=== PATIENT | male | born 1980 | race Caucasian/White ===

== ENCOUNTER 2016-05-29 18:51 | Emergency (ER) | payer OTHER ==
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
[2016-05-29 20:00] VITALS: BP 124/90
[2016-05-29] MEDS: BENZONATATE 100 MG CAPSULE PO ONE (20:04)
[2016-05-29] MEDS: predniSONE 10 MG TABLET PO ONE (20:04)
== END 2016-05-29 20:05 | disposition home or self-care (01) ==
LOC: ED 18:51
DX: J06.9 Acute upper respiratory infection, unspecified (principal)
CPT/HCPCS: 99282; A9270-GY; J7512

== ENCOUNTER 2016-07-20 14:54 | Emergency (ER) | payer SELFPAY ==
[2016-07-20 15:04] VITALS: BP 147/81
[2016-07-20] MEDS ORDERED: KETOROLAC TROMETHAMINE 60 MG/2 ML VIAL IM ONE (15:09)
--- NOTE | 2016-07-20 15:13 | ED Physician Documentation ---
General Adult - HISTORIAN Historian: patient - HPI Stated Complaint: Back Pain Chief Complaint: General Adult Additional Information: Working on [employer] this am. Cut piece of plywood. Sat down on bed and leaned back. Immediate low back pain bilaterally, R>L. Has tried heat, ice, heat patch, w/o affect. Denies numbness, weaknee, loss bowel/bladder control. No weakness. - ROS CONST: no problems - PAST HX Past History: other (acid reflux; back pain episodes i nthe past) Allergies/Adverse Reactions: Allergies Allergy/AdvReac Type Severity Reaction Status Date / Time Penicillins Allergy Severe Anaphylaxis Verified 05/29/16 20:00 acetaminophen [From Percocet] Allergy Intermediate Hives Verified 05/29/16 20:00 oxycodone HCl [From Percocet] Allergy Intermediate Hives Verified 05/29/16 20:00 Home Medications: Ambulatory Orders Medication Instructions Recorded Cyclobenzaprine HCl [Flexeril] 10 mg PO HS #12 tablet 07/20/16 - SOCIAL HX Smoking History: cigarettes - FAMILY HX Family History: No - VITAL SIGNS Vital Signs: Vital Signs Temp Pulse Resp BP Pulse Ox 98 F 68 18 147/81 99 07/20/16 14:54 07/20/16 14:54 07/20/16 14:54 07/20/16 14:54 07/20/16 14:54 - REVIEWED ASSESSMENTS Nursing Assessment Reviewed: Yes Vitals Reviewed: Yes ED Results Lab/Radiology - Orders Orders: ED Orders Category Date Time Status Ketorolac Tromethamine [Toradol] Med 07/20/16 15:09 Once 60 mg IM NOW ONE General Adult Physical Exam - PHYSICAL EXAM GENERAL APPEARANCE: moderate distress EENT: eye inspection normal, ENT inspection normal NECK: normal inspection, supple RESPIRATORY: no resp distress, breath sounds normal CVS: reg rate & rhythm, heart sounds normal, no murmur RECTAL: deferred BACK: normal inspection, other (bilateral thoracolumbar paraspinous muscle spas , tender to palpation, R>L. No vertebral tenderness. Erect posure, ROM with local discomfort. ) SKIN: warm/dry EXTREMITIES: normal range of motion (gait), no evidence of injury NEURO: CN's nml as tested, motor nml, sensation nml, cognition normal, other ( reflexes 2+ throughout) Discharge Clincal Impression: Back pain Qualifiers: Back pain location: back pain in other location Chronicity: acute Qualified Code(s): M54.9 - Dorsalgia, unspecified Prescriptions: Cyclobenzaprine HCl [Flexeril] 10 mg PO HS #12 tablet Additional Instructions: Continue using heat and cold to the sore areas, followed by gentle motion and stretching. You can take 1000 mg tylenol up to three times a day. You can take 600 mg ibuprofen with food every 8 hours. If this upsets you stomach, stop the ibuprofen. Home Medications: Ambulatory Orders Cyclobenzaprine HCl [Flexeril] 10 mg PO HS #12 tablet 07/20/16 Condition: Fair Disposition: 01 HOME, SELF-CARE Decision to Admit: NO Decision Time: 15:18
== END 2016-07-20 15:26 | disposition home or self-care (01) ==
LOC: ED 14:54
DX: M54.9 Dorsalgia, unspecified (principal)
CPT/HCPCS: 96372; 99283; J1885

== ENCOUNTER 2017-03-22 04:30 | Emergency (ER) | payer SELFPAY ==
[2017-03-22] MEDS ORDERED: KETOROLAC TROMETHAMINE 60 MG/2 ML VIAL ONE (04:44)
--- NOTE | 2017-03-22 05:04 | ED Physician Documentation ---
Upper Extremity Injury - HISTORIAN Historian: patient - HPI Stated Complaint: rt shoulder injury Chief Complaint: Upper Extremity Injury Onset: yesterday (5AM) Where: other Severity: moderate Duration: worse Context: fall, blow Modifying Factors: pain on movement - ROS CONST: no problems. denies: fever, chills - PAST HX Past History: Rt handed Allergies/Adverse Reactions: Allergies Allergy/AdvReac Type Severity Reaction Status Date / Time Penicillins Allergy Severe Anaphylaxis Verified 03/22/17 04:51 oxycodone HCl [From Percocet] Allergy Intermediate Hives Verified 03/22/17 04:51 Home Medications: Ambulatory Orders Medication Instructions Recorded Ranitidine HCl [Ranitidine HCl] 150 mg PO D 03/22/17 - SOCIAL HX Smoking History: less than 1 pack/day Alcohol Use: none Drug Use: none - FAMILY HX Family History: no significant history (1/2 ppd) - VITAL SIGNS Vital Signs: Vital Signs Temp Pulse Resp BP Pulse Ox 97.8 F 63 16 127/74 98 03/22/17 04:33 03/22/17 05:43 03/22/17 05:43 03/22/17 05:43 03/22/17 05:43 - REVIEWED ASSESSMENTS Nursing Assessment Reviewed: Yes Vitals Reviewed: Yes ED Results Lab/Radiology - Orders Orders: ED Orders Category Date Time Status Sling to Affected Extremity 1T Care 03/22/17 05:32 Active SHOULDER 2 VIEWS OR MORE [RAD] Stat Exams 03/22/17 Taken Ketorolac Tromethamine [Toradol] Med 03/22/17 04:44 Discontinued 60 mg .ROUTE .STK-MED ONE Ketorolac Tromethamine [Toradol] Med 03/22/17 05:13 Discontinued 60 mg IM NOW ONE Upper Extremity Injury Physic - Physical Exam General Appearance: alert, moderate distress Hand: normal inspection, non-tender, no evidence of injury, normal ROM Wrist: normal inspection, non-tender, no evidence of injury, normal ROM Elbow/Forearm: normal inspection, non-tender, no evidence of injury, normal ROM Shoulder: limited ROM (due to pain), pain (tenderness to palpation over the anterior shoulder area), soft tissue tenderness. No: ecchymosis, swelling Neuro/Vascular/Tendon: no vascular compromise, motor nml Skin: warm,dry Resp/CVS: chest non-tender, breath sounds nml, heart sounds nml, no resp. distress, lungs clear, reg. rate & rhythm Discharge Clincal Impression: Contusion of shoulder Referrals: Andrea Carl MD [Primary Care Provider] - 2 Days Additional Instructions: Try applying a cool/warm compress to the shoulder area. Wear arm sling for comfort measures. Do shoulder exercises as shown. Take some Aleve 220mg with food twice a day for pain. If you continue to have problems to be evaluated by primary care provider or return to the ED. Condition: Stable Disposition: 01 HOME, SELF-CARE Decision to Admit: NO Date of Decison to Admit: 03/22/17 Decision Time: 05:19
[2017-03-22] MEDS ORDERED: KETOROLAC TROMETHAMINE 60 MG/2 ML VIAL IM ONE (05:13)
[2017-03-22 05:46] VITALS: BP 127/74
--- NOTE | 2017-03-22 06:42 | Diagnostic Imaging Report ---
MARTIN EVERETT [facility] [address] [facility].[address] [address] Report Submission Date: Mar 22, 2017 5:11:41 AM CDT Patient Study Name: ANDREZ ALVARADO Date: Mar 22, 2017 4:56:16 AM CDT Modality Type: CR Gender: M Description: SHOULDER : 82 Institution: [facility] Physician: MARTIN EVERETT 3 views of the right shoulder History: RT SHOULDER PAIN, PT FELL AND LANDED ON RIGHT SHOULDER No comparison studies No evidence of acute fracture or dislocation of the right shoulder. Glenohumeral and acromioclavicular joint spaces are preserved Impression: No evidence of acute fracture or dislocation of the right shoulder Electronically signed on Mar 22, 2017 5:11:41 AM CDT by: Megha STARKS
== END 2017-03-22 05:35 | disposition home or self-care (01) ==
LOC: ED 04:30
DX: S40.011A Contusion of right shoulder, initial encounter (principal); X58.XXXA Exposure to other specified factors, initial encounter; Y93.9 Activity, unspecified; Y99.9 Unspecified external cause status
CPT/HCPCS: 73030; J1885; 96372; 99283

== ENCOUNTER 2017-10-01 17:10 | Emergency (ER) | payer OTHER ==
[2017-10-01] MEDS: ASPIRIN 81 MG CHEW TAB PO ONE (17:40)
[2017-10-01 18:03] LABS: eGFR (African) > 60; eGFR (Non-African) > 60
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
[2017-10-01] MEDS: 0.9 % SODIUM CHLORIDE 1,000 ML IV ONE (18:10)
[2017-10-01 18:16] LABS: MEAN CORPUSCULAR HEMOGLOBIN 31.1 pg (28.0-34.0); MEAN CORPUSCULAR VOLUME 92.2 fl (80.0-100.0)
[2017-10-01 18:17] LABS: BASOPHILS % 0.7 (0.0-1.5); EOSINOPHILS % 2.1 % (0.0-6.8); MONOCYTES % 4.4 % (0.0-11.0); NEUTROPHILS # 7.9 # k/uL (1.4-7.7)
--- NOTE | 2017-10-01 18:52 | Diagnostic Imaging Report ---
DINO BETTENCOURT [facility] [address] [facility] [address] [place], [place]. [address] Report Submission Date: October 01, 2017 6:39:31 PM CDT Patient Study Name: ANDREZ ALVARADO Date: October 01, 2017 6:20:30 PM CDT Modality Type: CT\SR Gender: M Description: CT BRAIN W/O CONTRAST : 82 Institution: [facility] Physician: DINO BETTENCOURT CT brain History: CT HEAD W/O, LOC, PT STATES HE HAD CHEST DISCOMFORT AND THEN PASSED OUT multiple axial images of the brain are submitted with reconstructions No comparison studies No evidence of acute intracranial hemorrhage. No midline shift. No hydrocephalus Paranasal air sinuses and mastoid air cells are well aerated. No skull fracture. Impression: No evidence of acute intracranial hemorrhage. No midline shift. No hydrocephalus. Electronically signed on October 01, 2017 6:39:31 PM CDT by: Megha STARKS
--- NOTE | 2017-10-01 18:52 | Diagnostic Imaging Report ---
DINO BETTENCOURT [facility] [address] [facility] [address] [place], [place]. [address] Report Submission Date: October 01, 2017 6:36:17 PM CDT Patient Study Name: ANDREZ ALVARADO Date: October 01, 2017 6:12:42 PM CDT Modality Type: DX Gender: M Description: CHEST : 82 Institution: [facility] Physician: DINO BETTENCOURT 2 views of the chest History: CXR, CHEST PAIN AND TIGHTNESS TODAY No comparison studies Heart is normal in size. No focal consolidation, pleural effusion or pneumothorax. No acute osseous pathology Minimal hilar prominence. Impression: 1. No focal consolidation or pleural effusion. Minimal hilar prominence. Electronically signed on October 01, 2017 6:36:17 PM CDT by: Megha STARKS
[2017-10-01 18:53] VITALS: BP 111/77
== END 2017-10-01 18:45 | disposition home or self-care (01) ==
LOC: ED 17:10
DX: R07.9 Chest pain, unspecified (principal)
CPT/HCPCS: 70450; 71046; 80053; 82550; 84484; 85025; 85379; 93005; J7030; S1016

== ENCOUNTER 2017-12-01 17:20 | Emergency (ER) | payer OTHER ==
[2017-12-01] MEDS ORDERED: KETOROLAC TROMETHAMINE 30 MG/1ML VIAL IVP ONE (17:38)
[2017-12-01] MEDS: KETOROLAC TROMETHAMINE 30 MG/1ML VIAL ONE (17:54)
[2017-12-01] MEDS ORDERED: 0.9 % SODIUM CHLORIDE 1,000 ML IV SCH (18:00)
[2017-12-01 18:03] LABS: BASOPHILS % 1.3 (0.0-1.5); EOSINOPHILS % 2.8 % (0.0-6.8); MEAN CORPUSCULAR HEMOGLOBIN 31.8 pg (28.0-34.0); MEAN CORPUSCULAR VOLUME 92.1 fl (80.0-100.0); MONOCYTES % 5.7 % (0.0-11.0); NEUTROPHILS # 6.4 # k/uL (1.4-7.7)
[2017-12-01 18:19] LABS: eGFR (African) > 60; eGFR (Non-African) > 60
[2017-12-01] MEDS: 0.9 % SODIUM CHLORIDE 1,000 ML IV ONE (18:47)
--- NOTE | 2017-12-01 18:47 | Diagnostic Imaging Report ---
MARTIN EVERETT [facility] [address] [facility] [address] [place], [place]. [address] Report Submission Date: Dec 01, 2017 6:30:06 PM CDT Patient Study Name: ANDREZ ALVARADO Date: Dec 01, 2017 6:04:45 PM CDT Modality Type: CT\SR Gender: M Description: CT ABD PELVIS W/O CO : 82 Institution: [facility] Physician: MARTIN EVERETT CT Abdomen/pelvis without contrast History: BILAT FLANK PAIN X 1 WEEK. LEFT WORSE THAN RIGHT. DENIES KIDNEY HISTORY (Hx) / ITS.REASON FLANK PAIN no comparison studies are available Emphysema. No free intraperitoneal air. No acute osseous pathology Hepatic steatosis. Gallbladder is contracted. Splenic calcified granulomas are present. Both adrenal glands are within normal limits. The pancreas within normal limits. Cortical calcification noted in the left kidney. Limited evaluation of renal parenchyma on this noncontrast study. Renal cysts are questioned on the right. A small nonobstructing right renal calculus. No right hydronephrosis. There is mild to moderate left hydronephrosis with adjacent fat stranding. There is an obstructing 6 mm calculus at the left ureterovesicular junction. Mild fat stranding around the urinary bladder may be due to UTIi. Prostatic calcification is present The colon is collapsed. Normal appendix. No obvious bowel obstruction. Subcentimeter abdominal and pelvic lymph nodes are noted. Impression: 1. Left obstructive uropathy. Mild to moderate left hydronephrourterosis with adjacent fat stranding. There is an obstructing 6 mm calculus in the left ureterovesicular junction . Fat stranding around the urinary bladder may be due to uti. Prostatic calcification is present. Nonobstructing right renal calculus measures 3 mm 2. Left renal cortical calcification is noted. Limited evaluation of the renal parenchyma for lesions, questionable right renal cysts. 3. Hepatic steatosis.. Normal appendix. Electronically signed on Dec 01, 2017 6:30:06 PM CDT by: Megha STARKS
[2017-12-01] MEDS: TAMSULOSIN HCL 0.4 MG CAP.ER.24H PO ONE (19:21)
--- NOTE | 2017-12-02 00:40 | ED Physician Documentation ---
Flank Pain - HISTORIAN Historian: patient - HPI Chief Complaint: Flank Pain Additional Information: Intermittent pain in the flank pain. First episode occurred about one week ago on the right side lasted for about 10 minutes. Yesterday occurred twice in the left flank area. Pain started again tonight in the left flank area with radiation into the left testicle. No nausea noted. No previous history of kidney stones. Sister with history of kidney stones. No fever or chills noted. Patient states that last week after he had the right sided pain he passed in his urine something that looked like a small stone that had "quills on it" . Patient denies any hematuria. Onset: minutes (45) Duration: constant Timing: still present Context: denies: out of country travel Severity: severe Quality: pain, cramping, sharp Associated Symptoms: none. denies: fever, chills, nausea, vomiting, coffee ground emesis Exacerbated by: denies: nothing Relieved by: denies: nothing - ROS CONST: no problems GI/: none. denies: dark urine, problems urinating - SOCIAL HX Smoking History: less than 1 pack/day Alcohol Use: none Drug Use: none - FAMILY HX Family History: no significant history. denies: kidney stones - PAST HX Past History: none Ischemic Bowel Risk Factors: none Other History: none Surgeries/Procedures: none Immunizations: referred to PCP - VITAL SIGNS Vital Signs: Vital Signs Temp Pulse Resp BP Pulse Ox 111/77 10/01/17 18:45 - REVIEWED ASSESSMENTS Nursing Assessment Reviewed: Yes ED Results Lab/Radiology - Radiology Radiology Impressions: CT Abdomen/pelvis without contrast History: BILAT FLANK PAIN X 1 WEEK. LEFT WORSE THAN RIGHT. DENIES KIDNEY HISTORY (Hx) / ITS.REASON FLANK PAIN no comparison studies are available Emphysema. No free intraperitoneal air. No acute osseous pathology Hepatic steatosis. Gallbladder is contracted. Splenic calcified granulomas are present. Both adrenal glands are within normal limits. The pancreas within normal limits. Cortical calcification noted in the left kidney. Limited evaluation of renal parenchyma on this noncontrast study. Renal cysts are questioned on the right. A small nonobstructing right renal calculus. No right hydronephrosis. There is mild to moderate left hydronephrosis with adjacent fat stranding. There is an obstructing 6 mm calculus at the left ureterovesicular junction. Mild fat stranding around the urinary bladder may be due to UTIi. Prostatic calcification is present The colon is collapsed. Normal appendix. No obvious bowel obstruction. Subcentimeter abdominal and pelvic lymph nodes are noted. Impression: 1. Left obstructive uropathy. Mild to moderate left hydronephrourterosis with adjacent fat stranding. There is an obstructing 6 mm calculus in the left ureterovesicular junction . Fat stranding around the urinary bladder may be due to uti. Prostatic calcification is present. Nonobstructing right renal calculus measures 3 mm 2. Left renal cortical calcification is noted. Limited evaluation of the renal parenchyma for lesions, questionable right renal cysts. 3. Hepatic steatosis.. Normal appendix. Abdominal Pain Physical Exam - Physical Exam General Appearance: severe distress EENT: ENT inspection normal NECK: normal inspection, thyroid normal, supple RESPIRATORY: no resp distress, chest non-tender, breath sounds normal. No: wheezes, rales, rhonchi CVS: reg rate & rhythm, heart sounds normal, equal pulses, no murmur, no gallop ABDOMEN: soft, no organomegaly, no abdominal bruit, no distension, tenderness ( mild LLQ tenderness), decreased BS MALE GENITAL: normal genitalia, no hernia. No: epididymal tenderness, scrotum tenderness (L), testicular tenderness (R), testicular tenderness (L), urethral discharge BACK: normal inspection, no CVA tenderness, CVA tenderness (L) SKIN: warm/dry, normal color EXTREMITIES: no edema NEURO: oriented X3, mood/affect nml, cognition normal Vital Signs: Vital Signs Temp Pulse Resp BP Pulse Ox 111/77 10/01/17 18:45 Discharge Clincal Impression: Kidney stone on left side Prescriptions: Hydrocodone/Acetaminophen [Hydrocodon-Acetaminophen 5-325] 1 - 2 each PO Q4 PRN #20 tablet PRN Reason: Pain Tamsulosin HCl [Flomax] 0.4 mg PO [id number] #7 cap.er.24h Referrals: Andrea Carl MD [Primary Care Provider] - 2 Days Condition: Good Disposition: 01 HOME, SELF-CARE Decision to Admit: NO Date of Decison to Admit: 12/01/17 Decision Time: 18:56
[2017-12-02 00:41] VITALS: BP 129/89
[2017-12-02] MEDS ORDERED: TAMSULOSIN HCL 0.4 MG CAP.ER.24H PO ONE (19:06)
--- NOTE | 2017-12-02 19:48 | Diagnostic Imaging Report ---
[facility] [address] [facility] [address] [place], [place]. [address] Report Submission Date: Dec 01, 2017 6:30:06 PM CDT Patient Study Name: ANDREZ ALVARADO Date: Dec 01, 2017 6:04:45 PM CDT Modality Type: CT\SR Gender: M Description: CT ABD PELVIS W/O CO : 82 Institution: [facility] Physician: MARTIN EVERETT CT Abdomen/pelvis without contrast History: BILAT FLANK PAIN X 1 WEEK. LEFT WORSE THAN RIGHT. DENIES KIDNEY HISTORY (Hx) / ITS.REASON FLANK PAIN no comparison studies are available Emphysema. No free intraperitoneal air. No acute osseous pathology Hepatic steatosis. Gallbladder is contracted. Splenic calcified granulomas are present. Both adrenal glands are within normal limits. The pancreas within normal limits. Cortical calcification noted in the left kidney. Limited evaluation of renal parenchyma on this noncontrast study. Renal cysts are questioned on the right. A small nonobstructing right renal calculus. No right hydronephrosis. There is mild to moderate left hydronephrosis with adjacent fat stranding. There is an obstructing 6 mm calculus at the left ureterovesicular junction. Mild fat stranding around the urinary bladder may be due to UTIi. Prostatic calcification is present The colon is collapsed. Normal appendix. No obvious bowel obstruction. Subcentimeter abdominal and pelvic lymph nodes are noted. Impression: 1. Left obstructive uropathy. Mild to moderate left hydronephrourterosis with adjacent fat stranding. There is an obstructing 6 mm calculus in the left ureterovesicular junction . Fat stranding around the urinary bladder may be due to uti. Prostatic calcification is present. Nonobstructing right renal calculus measures 3 mm 2. Left renal cortical calcification is noted. Limited evaluation of the renal parenchyma for lesions, questionable right renal cysts. 3. Hepatic steatosis.. Normal appendix. Electronically signed on Dec 01, 2017 6:30:06 PM CDT by: Megha STARKS
== END 2017-12-01 19:40 | disposition home or self-care (01) ==
LOC: ED 17:20
DX: N20.0 Calculus of kidney (principal)
CPT/HCPCS: 74176; 80053; 85025; J1885; J7030; 96365; 96375; 99284; S1016

== ENCOUNTER 2017-12-01 21:43 | Emergency (ER) | payer OTHER ==
[2017-12-01] MEDS ORDERED: 0.9 % SODIUM CHLORIDE 1,000 ML IV ONE (21:50)
[2017-12-01] MEDS ORDERED: HYDROmorphone HCL/PF 1 MG/ML DISP.SYRIN IVP ONE ×3 (21:50→23:40)
[2017-12-01] MEDS ORDERED: ONDANSETRON HCL/PF 4 MG/ 2ML VIAL IVP ONE (21:51)
[2017-12-01] MEDS: 0.9 % SODIUM CHLORIDE 1,000 ML IV ONE (22:05)
[2017-12-01] MEDS: HYDROmorphone HCL/PF 2 MG/ML DISP.SYRIN ONE (22:07)
[2017-12-01] MEDS: ONDANSETRON HCL/PF 4 MG/ 2ML VIAL ONE (22:07)
[2017-12-01] MEDS ORDERED: HYDROcodone /APAP 5/325 1 EACH TABLET PO PRN (23:41)
[2017-12-01] MEDS ORDERED: HYDROcodone /APAP 5/325 1 EACH TABLET ONE (23:47)
[2017-12-02 00:45] VITALS: BP 137/89
--- NOTE | 2017-12-02 00:46 | ED Physician Documentation ---
General Adult - HISTORIAN Historian: patient - HPI Stated Complaint: Left flank pain Chief Complaint: General Adult Onset: days ago Timing: still present Severity: moderate Further Comments: yes (Pt is a 37 yo male seen here earlier today and dx'd with a L-sided kidney stone. Pt was given a prescription for [place], but did not get to the pharmacy in time to fill it. Pt has had L sided pain with radiation to groin. No previous hx kidney stone.) - ROS CONST: no problems EYES/ENT: none CVS/RESP: none GI/: abdominal pain (L-sided flank pain) MS/SKIN/LYMPH: none - PAST HX Past History: other (GERD) Allergies/Adverse Reactions: Allergies Allergy/AdvReac Type Severity Reaction Status Date / Time Penicillins Allergy Severe Anaphylaxis Verified 10/01/17 17:35 oxycodone HCl [From Percocet] Allergy Intermediate Hives Verified 10/01/17 17:35 Home Medications: Ambulatory Orders Medication Instructions Recorded Ranitidine HCl [Ranitidine HCl] 150 mg PO D 03/22/17 Hydrocodone/Acetaminophen 1 - 2 each PO Q4 PRN #20 tablet 12/01/17 [Hydrocodon-Acetaminophen 5-325] Tamsulosin HCl [Flomax] 0.4 mg PO [id number] #7 cap.er.24h 12/01/17 - SOCIAL HX Smoking History: cigarettes - FAMILY HX Family History: No - VITAL SIGNS Vital Signs: Vital Signs Temp Pulse Resp BP Pulse Ox 98.8 F 74 18 159/68 98 12/01/17 21:45 12/01/17 21:45 12/01/17 21:45 12/01/17 21:45 12/01/17 21:45 - REVIEWED ASSESSMENTS Nursing Assessment Reviewed: Yes Vitals Reviewed: Yes Progress - Progress Progress: NS 1 L IVF Dilaudid 1 mg IV Zofran 4 mg IV Dilaudid 0.5 mg IV x 2 D/c home [place] (5/325) 1-2 po q 6 hr prn # 4 --> home (Pt has rx from earlier visit). ED Results Lab/Radiology - Orders Orders: ED Orders Category Date Time Status 0.9 % Sodium Chloride [Normal Saline] 1,000 ml Med 12/01/17 21:58 Discontinued IV .STK-MED HYDROmorphone HCL/PF [Dilaudid] Med 12/01/17 21:50 Once 1 mg IVP NOW ONE HYDROmorphone HCL/PF [Dilaudid] Med 12/01/17 21:58 Discontinued 2 mg .ROUTE .STK-MED ONE NORMAL SALINE @ 1000 MLS/HR ( 1000ml BOLUS) Med 12/01/17 21:50 Ordered 0.9 % Sodium Chloride [Normal Saline] 1,000 ml IV Q1H Ondansetron HCl/Pf [Zofran 4 mg/2 ml] Med 12/01/17 21:58 Discontinued 4 mg .ROUTE .STK-MED ONE Ondansetron HCl/Pf [Zofran 4 mg/2 ml] Med 12/01/17 21:51 Once 4 mg IVP NOW ONE General Adult Physical Exam - PHYSICAL EXAM GENERAL APPEARANCE: moderate distress EENT: pharynx normal NECK: normal inspection, supple RESPIRATORY: no resp distress, chest non-tender, breath sounds normal CVS: reg rate & rhythm, heart sounds normal ABDOMEN: soft, no organomegaly, normal bowel sounds, tenderness (L abd) BACK: normal inspection, CVA tenderness (L) SKIN: warm/dry, normal color EXTREMITIES: non-tender, normal range of motion, no evidence of injury NEURO: oriented X3, motor nml, sensation nml Discharge Clincal Impression: Kidney stone Referrals: Andrea Carl MD [Primary Care Provider] - Condition: Stable Disposition: 01 HOME, SELF-CARE Decision to Admit: NO Decision Time: 00:01
== END 2017-12-02 00:07 | disposition home or self-care (01) ==
LOC: ED 21:43
DX: N20.0 Calculus of kidney (principal)
CPT/HCPCS: A9270; J1170; J2405; J7030; 96365; 96375; 99284; S1016

== ENCOUNTER 2017-12-18 20:44 | Emergency (ER) | payer OTHER ==
[2017-12-18] MEDS ORDERED: fentaNYL CITRATE/PF 100 MCG/ 2ML AMP IVP ONE ×2 (21:32→22:50)
[2017-12-18] MEDS ORDERED: 0.9 % SODIUM CHLORIDE 1,000 ML IV ONE (21:32)
[2017-12-18 22:02] LABS: BASOPHILS % 0.4 (0.0-1.5); EOSINOPHILS % 1.4 % (0.0-6.8); MEAN CORPUSCULAR HEMOGLOBIN 32.1 pg (28.0-34.0); MEAN CORPUSCULAR VOLUME 92.3 fl (80.0-100.0); NEUTROPHILS # 11.8 # k/uL (1.4-7.7)
--- NOTE | 2017-12-18 22:07 | ED Physician Documentation ---
Male Genitourinary Problems - HISTORIAN Historian: patient, spouse - HPI Stated Complaint: Rt flank/side pain since yesterday Chief Complaint: Abdominal Pain Additional Information: pt dx 12-01-17 w/lt renal lithiasis apparently passed now pain rt flank rad to rt testicle onset yest. pt also c/o constipation. takes two 7.5/325 norco w/ no laxative. the prev ct rev non obst 3mm rt urinary calculus plus occ blood in urine tonite. will tx. Onset: days ago (yest) Duration: continues in ED, worse Severity: moderate, severe - Associated Symptoms Problems Urinating: blood in urine, discomfort w/ urination (is on cipro and tamsulosin) Testicular Pain: R testicle Testicular Swelling: none Penile Pain: No Flank Pain: right sided Abdominal Pain: cramping, severe - ROS CONST: no problems GI/: nausea, abdominal pain. denies: vomiting CVS/RESP: none EYES/ENT: denies: problems with vision NEURO/PSYCH: denies: fainting, dizziness - PAST HX Past History: kidney stones (lactose intolerant) Cardiac Disease: none Allergies/Adverse Reactions: Allergies Allergy/AdvReac Type Severity Reaction Status Date / Time Penicillins Allergy Severe Anaphylaxis Verified 12/18/17 21:12 oxycodone HCl [From Percocet] Allergy Intermediate Hives Verified 12/18/17 21:12 Home Medications: Ambulatory Orders Medication Instructions Recorded Hydrocodone/Acetaminophen 1 - 2 each PO Q4 PRN #20 tablet 12/01/17 [Hydrocodon-Acetaminophen 5-325] Tamsulosin HCl [Flomax] 0.4 mg PO [id number] #7 cap.er.24h 12/01/17 Albuterol Sulfate [Proventil Hfa] 1 puff IH PRN PRN 12/18/17 Ciprofloxacin HCl [Cipro] 500 mg PO BID 12/18/17 Omeprazole 20 mg PO D 12/18/17 - SOCIAL HX Smoking History: less than 1 pack/day (trying to quit) Alcohol Use: none Drug Use: none - FAMILY HX Family History: none - VITAL SIGNS Vital Signs: Vital Signs Temp Pulse Resp BP Pulse Ox 97.9 F 84 20 113/85 95 12/19/17 00:00 12/18/17 20:45 12/18/17 20:45 12/18/17 20:45 12/18/17 20:45 - REVIEWED ASSESSMENTS Nursing Assessment Reviewed: Yes Vitals Reviewed: Yes ED Results Lab/Radiology - Lab Results Lab Results: Lab Results 12/18/17 12/18/17 21:40 21:40 WBC 15.30 K/ul H K/ul (4.00-12.00) RBC 5.23 M/ul H M/ul (3.90-5.20) Hgb 16.8 g/dL g/dL (12.0-18.0) Hct 48.3 % % (37.0-53.0) MCV 92.3 fl fl (80.0-100.0) MCH 32.1 pg pg (28.0-34.0) MCHC 34.8 g/dL g/dL (30.0-36.0) RDW 12.9 % % (11.3-14.3) Plt Count 367 K/mm3 K/mm3 (130-400) Neut % (Auto) 76.7 % % (39.0-79.0) Lymph % (Auto) 15.3 % L % (16.0-50.0) [place] % (Auto) 5.0 % % (0.0-11.0) Eos % (Auto) 1.4 % % (0.0-6.8) Baso % (Auto) 0.4 (0.0-1.5) Neut # (Auto) 11.8 # k/uL H # k/uL (1.4-7.7) Lymph # (Auto) 2.3 # k/uL # k/uL (0.6-4.0) [place] # (Auto) 0.8 # k/uL # k/uL (0.0-0.9) Eos # (Auto) 0.2 # k/uL # k/uL (0.0-0.6) Baso # (Auto) 0.1 # k/uL # k/uL (0.0-0.5) Reactive Lymphs % 1.2 % % (0.0-5.0) Reactive Lymphs # 0.2 # k/uL # k/uL (0.0-0.8) Sodium 137 mmol/L mmol/L (136-145) Potassium 4.1 mmol/L mmol/L (3.5-5.1) Chloride 100 mmol/L mmol/L (98-107) Carbon Dioxide 29 mmol/L mmol/L (22-30) BUN 17 mg/dL mg/dL (9-20) Creatinine 1.70 mg/dL H mg/dL (0.66-1.25) Estimated Creat Clear 80 Est GFR ( Amer) 59 L (60 - ) Est GFR (Non-Af Amer) 49 L (60 - ) Glucose 127 mg/dL H mg/dL (74-106) Calcium 9.7 mg/dL mg/dL (8.4-10.2) Total Bilirubin 0.4 mg/dL mg/dL (0.2-1.3) AST 45 U/L U/L (15-46) ALT 79 U/L H U/L (13-69) Alkaline Phosphatase 79 U/L U/L (38-126) Total Protein 7.3 g/dL g/dL (6.3-8.2) Albumin 4.1 g/dL g/dL (3.5-5.0) - Orders Orders: ED Orders Category Date Time Status ABD SERIES PA CHEST [RAD] Stat Exams 12/18/17 Completed CBC/PLATELET/DIFF Routine Lab 12/18/17 21:40 Completed CMP Routine Lab 12/18/17 21:40 Completed URINALYSIS Routine Lab 12/18/17 Ordered 0.9 % Sodium Chloride [Normal Saline] 1,000 ml Med 12/18/17 21:32 Discontinued IV Q1H fentaNYL CITRATE/PF [Duragesic] Med 12/18/17 21:32 Discontinued 100 mcg IVP NOW ONE fentaNYL CITRATE/PF [Duragesic] Med 12/18/17 22:50 Discontinued 50 mcg IVP NOW ONE Male Genitourinary Problems - EXAM General Appearance: moderate distress Abdomen: tenderness, rebound. No: guarding, abnml bowel sounds (decreased) Neck: nml inspection. No: lymphadenopathy Respiratory: no resp distress, chest non-tender, breath sounds normal CVS: reg rate & rhythm, heart sounds normal Back: non-tender, painless ROM Extremities: normal range of motion, non-tender Neuro/Psych: oriented X3, motor nml, sensation nml, mood/affect nml Skin: warm/dry, normal color. No: cyanosis, diaphoresis, jaundice, mottled Discharge Clincal Impression: Right ureteral calculus, CONSTIPATION DT OPIATES Referrals: Andrea Carl MD [Primary Care Provider] - 2 Days Comments: HOME MG CITRATE USE GATORAID WATER MIXTURE. SEE UROLOGISTS IF NOT BETTER W/ CONSERVATIVE TX Condition: Good Disposition: 01 HOME, SELF-CARE Decision to Admit: NO Decision Time: 00:42
--- NOTE | 2017-12-18 22:16 | Diagnostic Imaging Report ---
ROGER DONOHUE [facility] [address] [facility], [facility] [address] [place], [place]. [address] Report Submission Date: Dec 18, 2017 10:14:34 PM CDT Patient Study Name: ANDREZ ALVARADO Date: Dec 18, 2017 9:42:23 PM CDT Modality Type: DX Gender: M Description: CHEST,ABDOMEN : 82 Institution: [facility] Physician: ROGER DONOHUE Abdomen series with single view chest History: Right flank pain and constipation for 3 days Findings: Right perihilar infiltrate or bronchitis has decreased since 2017. The lungs are well expanded. Heart size is normal. The left lung is clear. There is no pleural effusion. Upright and supine abdominal radiographs reveal prostate calcifications and gas within normal caliber loops of colon and small bowel. There is no bowel obstruction, constipation, free air, or radiopaque renal/ureteral stone. A left pelvic calcification is consistent with a phlebolith observed on the 2017 CT. The previously identified left ureteral stone is no longer observed. Impression: 1. Nonobstructive bowel gas pattern. 2. Decreased right perihilar infiltrate or bronchitis. Electronically signed on Dec 18, 2017 10:14:34 PM CDT by: Mick STARKS
[2017-12-19 01:01] VITALS: BP 124/96
[2017-12-19 07:31] LABS: APPEARANCE,URINE CLEAR (CLEAR); COLOR,URINE YELLOW (YELLOW)
[2017-12-19 07:32] LABS: OCCULT BLOOD,URINE TRACE-LYSED (NEGATIVE); UROBILINOGEN URINE 0.2 Eu (0.2-1.0)
== END 2017-12-19 00:50 | disposition home or self-care (01) ==
LOC: ED 20:44
DX: N20.9 Urinary calculus, unspecified (principal); K59.00 Constipation, unspecified
CPT/HCPCS: 74022; 80053; 81002; 85025; J3010; J7030; 96365; 96375; 99284; S1016

== ENCOUNTER 2017-12-19 18:36 | Emergency (ER) | payer OTHER ==
--- NOTE | 2017-12-19 20:08 | ED Physician Documentation ---
Male Genitourinary Problems - HISTORIAN Historian: patient, child - HPI Stated Complaint: rt flank abd pain Chief Complaint: Male Genitourinary Problems Additional Information: proven 3mm k-stone rt kidney 12-01-17. here last noct w\sy of ureteral stone w/ pain rt flank rad rt testicle. con\cern tonite of UTI Severity: mild, moderate - Associated Symptoms Problems Urinating: none, frequent urination, discomfort w/ urination. denies: blood in urine Testicular Pain: R testicle Penile Pain: No Penile Swelling: No Inguinal Mass: No Flank Pain: right sided Abdominal Pain: cramping, moderate - ROS CONST: no problems GI/: denies: nausea, vomiting MS/SKIN/LYMPH: none CVS/RESP: none. denies: shortness of breath, cough EYES/ENT: denies: problems with vision NEURO/PSYCH: denies: fainting, dizziness - PAST HX Past History: kidney stones Cardiac Disease: none Surgeries/Procedures: none Allergies/Adverse Reactions: Allergies Allergy/AdvReac Type Severity Reaction Status Date / Time Penicillins Allergy Severe Anaphylaxis Verified 12/19/17 18:53 oxycodone HCl [From Percocet] Allergy Intermediate Hives Verified 12/19/17 18:53 Home Medications: Ambulatory Orders Medication Instructions Recorded Hydrocodone/Acetaminophen 1 - 2 each PO Q4 PRN #20 tablet 12/01/17 [Hydrocodon-Acetaminophen 5-325] Tamsulosin HCl [Flomax] 0.4 mg PO [id number] #7 cap.er.24h 12/01/17 Albuterol Sulfate [Proventil Hfa] 1 puff IH PRN PRN 12/18/17 Ciprofloxacin HCl [Cipro] 500 mg PO BID 12/18/17 Omeprazole 20 mg PO D 12/18/17 - SOCIAL HX Smoking History: cigarettes Alcohol Use: none Drug Use: none - FAMILY HX Family History: none - VITAL SIGNS Vital Signs: Vital Signs Temp Pulse Resp BP Pulse Ox 98.6 F 81 18 121/61 96 12/19/17 18:36 12/19/17 18:36 12/19/17 18:36 12/19/17 18:36 12/19/17 18:36 - REVIEWED ASSESSMENTS Nursing Assessment Reviewed: Yes Vitals Reviewed: Yes ED Results Lab/Radiology - Orders Orders: ED Orders Category Date Time Status CT ABDOMEN PELVIS S [CT ABD & PELVIS W/O CON] Stat Exams 12/19/17 Ordered URINALYSIS Routine Lab 12/19/17 Ordered Male Genitourinary Problems - EXAM General Appearance: mild distress Abdomen: non-tender EENT: no signs of dehydration Neck: nml inspection Respiratory: no resp distress, breath sounds normal CVS: reg rate & rhythm Back: non-tender Neuro/Psych: oriented X3, motor nml, sensation nml, mood/affect nml Skin: warm/dry, normal color. No: cyanosis, diaphoresis Discharge Clincal Impression: constipationrt kidney-ureteral stone Referrals: Andrea Carl MD [Primary Care Provider] - 2 Days Comments: has appt w/urologists 8-5-18. disc CT pt prefers no. has only had 1 norco today is dehydrated but no uti still on cipro. had 1 bm today Condition: Good Disposition: 01 HOME, SELF-CARE Decision to Admit: NO Decision Time: 21:13
[2017-12-19 23:02] LABS: APPEARANCE,URINE CLEAR (CLEAR); COLOR,URINE YELLOW (YELLOW); OCCULT BLOOD,URINE TRACE-INTACT (NEGATIVE); UROBILINOGEN URINE 0.2 Eu (0.2-1.0)
[2017-12-19 23:07] VITALS: BP 147/91
== END 2017-12-19 21:20 | disposition home or self-care (01) ==
LOC: ED 18:36
DX: K59.00 Constipation, unspecified (principal); N20.0 Calculus of kidney
CPT/HCPCS: 81002; 99283

== ENCOUNTER 2018-01-19 15:46 | Emergency (ER) | payer OTHER ==
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
[2018-01-19] MEDS ORDERED: KETOROLAC TROMETHAMINE 60 MG/2 ML VIAL IM ONE (16:22)
[2018-01-19 17:06] VITALS: BP 123/76
== END 2018-01-19 16:45 | disposition home or self-care (01) ==
LOC: ED 15:46
DX: S10.93XA Contusion of unspecified part of neck, initial encounter (principal); S00.83XA Contusion of other part of head, initial encounter; S50.12XA Contusion of left forearm, initial encounter; Y92.9 Unspecified place or not applicable; Y93.9 Activity, unspecified; Y99.9 Unspecified external cause status
CPT/HCPCS: 96372; 99283; J1885

== ENCOUNTER 2018-05-13 21:18 | Emergency (ER) | payer SELFPAY ==
--- NOTE | 2018-05-13 21:40 | ED Physician Documentation ---
Upper Extremity Injury - HISTORIAN Historian: patient - HPI Stated Complaint: left hand pain Chief Complaint: Upper Extremity Injury Additional Information: Patient presents to ED with left wrist pain after falling earlier today. He states he fell backward on outstretched hand. Onset: today (6) Where: work Severity: moderate Duration: worse Context: fall Associated Symptoms: tingling Modifying Factors: pain on movement - ROS CONST: no problems CVS/RESP: none NEURO: none MS/SKIN/LYMPH: none - PAST HX Past History: Rt handed Allergies/Adverse Reactions: Allergies Allergy/AdvReac Type Severity Reaction Status Date / Time Penicillins Allergy Severe Anaphylaxis Verified 05/13/18 21:36 oxycodone HCl [From Percocet] Allergy Intermediate Hives Verified 05/13/18 21:36 Home Medications: Ambulatory Orders Medication Instructions Recorded Omeprazole 1 tab PO DAILY 05/13/18 - SOCIAL HX Smoking History: non-smoker, greater than 1 pack/day Alcohol Use: none Drug Use: none - FAMILY HX Family History: none - VITAL SIGNS Vital Signs: Vital Signs Temp Pulse Resp BP Pulse Ox 98.0 F 98 H 16 120/87 95 05/13/18 21:27 05/13/18 21:27 05/13/18 21:27 05/13/18 21:27 05/13/18 21:27 - REVIEWED ASSESSMENTS Nursing Assessment Reviewed: Yes Vitals Reviewed: Yes ED Results Lab/Radiology - Radiology Radiology Impressions: Three views of the left hand CLINICAL HISTORY: Metacarpal pain. Injury. FINDINGS: Examination left hand in palmar, lateral and oblique views fails to demonstrate evidence of fracture, dislocation or other bone or joint pathology. Electronically signed on May 13, 2018 10:05:54 PM MARKETING OPERATIONS ASSISTANT by: Yves Black Three views of left wrist CLINICAL HISTORY: Fall. Wrist pain. FINDINGS: Examination left wrist palmar, lateral and oblique views fails to demonstrate evidence of fracture, dislocation or other bone or joint pathology. Electronically signed on May 13, 2018 10:06:39 PM MARKETING OPERATIONS ASSISTANT by: Yves Black - Orders Orders: ED Orders Category Date Time Status HAND 3 VIEWS OR MORE [RAD] Stat Exams 05/13/18 Taken WRIST 3 VIEWS OR MORE [RAD] Stat Exams 05/13/18 Taken Upper Extremity Injury Physic - Physical Exam General Appearance: no acute distress, alert Hand: normal inspection, swelling Wrist: soft tissue tenderness Elbow/Forearm: normal inspection Shoulder: normal inspection Neuro/Vascular/Tendon: no vascular compromise, motor nml, sensation nml Skin: warm,dry Head/ENT: nml inspection Neck/Back: nml inspection Resp/CVS: chest non-tender, breath sounds nml, heart sounds nml, reg. rate & rhythm Abdomen: non-tender. No: tenderness Discharge Clincal Impression: Left wrist injury Qualifiers: Encounter type: initial encounter Qualified Code(s): S69.92XA - Unspecified injury of left wrist, hand and finger(s), initial encounter Referrals: Andrea Carl MD [Primary Care Provider] - 2 Days Additional Instructions: 1. Tylenol and/or Ibuprofen as needed for pain. You may take these together for better pain control. 2. Apply ice to affected area as needed 3. Keep arm elevated when at rest 4. Follow up with PCP within 3 days 5. Return to ED for new or worsening symptoms. Disposition: 01 HOME, SELF-CARE Decision to Admit: NO Date of Decison to Admit: 05/13/18 Decision Time: 22:10
[2018-05-13 22:24] VITALS: BP 134/79
--- NOTE | 2018-05-14 05:42 | Diagnostic Imaging Report ---
MATILDA GREGORIO [facility] [address] [facility] [address] [place] [address]. [id number] Report Submission Date: May 13, 2018 10:05:54 PM ENGINEER SYSTEMS Patient Study Name: ANDREZ ALVARADO Date: May 13, 2018 9:33:45 PM ENGINEER SYSTEMS Modality Type: DX Gender: M Description: UPPER EXTREMITY : 82 Institution: [facility] Physician: MATILDA GREGORIO Three views of the left hand CLINICAL HISTORY: Metacarpal pain. Injury. FINDINGS: Examination left hand in palmar, lateral and oblique views fails to demonstrate evidence of fracture, dislocation or other bone or joint pathology. Electronically signed on May 13, 2018 10:05:54 PM ENGINEER SYSTEMS by: Yves STARKS
--- NOTE | 2018-05-14 05:58 | Diagnostic Imaging Report ---
MATILDA GREGORIO [facility] [address] [facility] [address] [address] Report Submission Date: May 13, 2018 10:06:39 PM METAL RIVETER Patient Study Name: ANDREZ ALVARADO Date: May 13, 2018 9:39:37 PM METAL RIVETER Modality Type: DX Gender: M Description: UPPER EXTREMITY : 82 Institution: [facility] Physician: MATILDA GREGORIO Three views of left wrist CLINICAL HISTORY: Fall. Wrist pain. FINDINGS: Examination left wrist palmar, lateral and oblique views fails to demonstrate evidence of fracture, dislocation or other bone or joint pathology. Electronically signed on May 13, 2018 10:06:39 PM METAL RIVETER by: Yves STARKS
== END 2018-05-13 22:22 | disposition home or self-care (01) ==
LOC: ED 21:18
DX: S69.92XA Unspecified injury of left wrist, hand and finger(s), initial encounter (principal); W19.XXXA Unspecified fall, initial encounter; Y93.9 Activity, unspecified; Y92.89 Other specified places as the place of occurrence of the external cause; Y99.0 Civilian activity done for income or pay
CPT/HCPCS: 73110; 73130; 99282; 99284

== ENCOUNTER 2018-07-18 19:40 | Emergency (ER) | payer SELFPAY ==
--- NOTE | 2018-07-18 19:50 | ED Physician Documentation ---
Upper Respiratory Symptoms - HISTORIAN Historian: patient - HPI Stated Complaint: cough, bodyace Chief Complaint: Cough/ Upper Respiratory Additional Information: Patient presents to ED with a 12-14 hour history of cough, bodyaches, headache with nausea/vomiting. Onset: hours (16) Duration: constant Context: denies: recent foreign travel Severity: mild Associated Symptoms: fever Worsened by Deep Breath: Yes Further Comments: no - ROS CONST/EYES: weakness CVS/RESP: shortness of breath GI/: none NEURO/PSYCH: denies: dizziness - PAST HX Lung Disease: none PE Risk Factors: none Surgeries/Procedures: none Allergies/Adverse Reactions: Allergies Allergy/AdvReac Type Severity Reaction Status Date / Time Penicillins Allergy Severe Anaphylaxis Verified 07/18/18 21:45 oxycodone HCl [From Percocet] Allergy Intermediate Hives Verified 07/18/18 21:45 Home Medications: Ambulatory Orders Medication Instructions Recorded Omeprazole 1 tab PO DAILY 05/13/18 - SOCIAL HX Smoking History: cigarettes, greater than 1 pack/day Alcohol Use: none Drug Use: none - FAMILY HX Family History: none - VITAL SIGNS Vital Signs: Vital Signs Temp Pulse Resp BP Pulse Ox 134/79 05/13/18 22:22 - REVIEWED ASSESSMENTS Nursing Assessment Reviewed: Yes Vitals Reviewed: Yes ED Results Lab/Radiology - Orders Orders: ED Orders Category Date Time Status Place IV Lock 1T Care 07/18/18 20:07 Active BMP [BMP] Routine Lab 07/18/18 20:36 Received CBC/PLATELET/DIFF Routine Lab 07/18/18 20:36 Received 0.9 % Sodium Chloride [Normal Saline] 1,000 ml Med 07/18/18 20:14 Discontinued IV Q1H 0.9 % Sodium Chloride [Normal Saline] 1,000 ml Med 07/18/18 21:28 Active IV Q1H Ipratropium/Albuterol Sulfate [Duoneb] Med 07/18/18 20:25 Discontinued 3 ml NEB NOW ONE Ketorolac Tromethamine [Toradol] Med 07/18/18 20:07 Discontinued 30 mg IVP NOW ONE Ondansetron HCl Rapdis [Zofran Odt] Med 07/18/18 20:04 Discontinued 4 mg PO NOW ONE Ondansetron HCl/Pf [Zofran] Med 07/18/18 20:07 Discontinued 4 mg IVP NOW ONE Oseltamivir Phosphate [Tamiflu] Med 07/18/18 20:08 Discontinued 75 mg PO NOW ONE methylPREDNISolone SOD SUCC [Solu-MEDROL] Med 07/18/18 20:04 Discontinued 125 mg IM NOW ONE methylPREDNISolone SOD SUCC [Solu-MEDROL] Med 07/18/18 20:07 Discontinued 125 mg IVP NOW ONE Upper Respiratory Symptoms - EXAM General Appearance: no acute distress, alert Neck: supple Respiratory: no resp. distress, wheezes Abdomen: non-tender CVS: reg rate & rhythm, heart sounds normal Skin: color nml, no rash, warm,dry Extremities: non-tender Neuro/Psych: oriented x3, mood/affect nml Discharge Clincal Impression: Influenza due to influenza virus, type B Referrals: Primary Doctor,No [Primary Care Provider] - 2 Days Additional Instructions: 1. Tylenol and/or Ibuprofen as needed for pain/fever 2. Tamiflu every 12 hours x 5 days 3. Avoid contact with other people for next 48 hours 4. Drink plenty of fluids. Avoid alcohol and caffeine 5. Follow up with PCP within 1 week 6. Return to ER for new or worsening symptoms. Condition: Stable Disposition: 01 HOME, SELF-CARE Decision to Admit: NO Date of Decison to Admit: 07/18/18 Decision Time: 22:23
[2018-07-18] MEDS ORDERED: methylPREDNISolone SOD SUCC 125 MG/2 ML VIAL IM ONE (20:04)
[2018-07-18] MEDS ORDERED: ONDANSETRON HCL 4 MG TAB.RAPDIS PO ONE (20:04)
[2018-07-18] MEDS ORDERED: methylPREDNISolone SOD SUCC 125 MG/2 ML VIAL IVP ONE (20:07)
[2018-07-18] MEDS ORDERED: ONDANSETRON HCL/PF 4 MG/ 2ML VIAL IVP ONE (20:07)
[2018-07-18] MEDS ORDERED: KETOROLAC TROMETHAMINE 30 MG/1ML VIAL IVP ONE (20:07)
[2018-07-18] MEDS ORDERED: OSELTAMIVIR PHOSPHATE 75 MG CAPSULE PO ONE (20:08)
[2018-07-18] MEDS ORDERED: 0.9 % SODIUM CHLORIDE 1,000 ML IV ONE ×2 (20:14→21:28)
[2018-07-18] MEDS ORDERED: IPRATROPIUM/ALBUTEROL SULFATE 3 ML AMPUL.NEB NEB ONE (20:25)
[2018-07-18] MEDS ORDERED: BENZONATATE 100 MG CAPSULE PO ONE (22:35)
[2018-07-18 23:53] VITALS: BP 122/66
[2018-07-19 06:19] LABS: MEAN CORPUSCULAR HEMOGLOBIN 30.8 pg (28.0-34.0)
[2018-07-19 06:20] LABS: BASOPHILS % 1.6 (0.0-1.5); EOSINOPHILS % 1.8 % (0.0-6.8); MONOCYTES % 12.3 % (0.0-11.0); NEUTROPHILS # 8.6 # k/uL (1.4-7.7)
[2018-07-19 06:21] LABS: eGFR (Non-African) > 60
== END 2018-07-18 22:55 | disposition home or self-care (01) ==
LOC: ED 19:40
DX: J11.1 Influenza due to unidentified influenza virus with other respiratory manifestations (principal); Z72.0 Tobacco use
CPT/HCPCS: 36415; 80048; 85025; 94640; 96374; 96375; 99283; 99284; J1885; J2405; J2930; A9270-GY; J7030; S1016

== ENCOUNTER 2018-07-21 19:10 | Inpatient (IN) | payer SELFPAY ==
--- NOTE | 2018-07-21 19:26 | ED Physician Documentation ---
Upper Respiratory Symptoms - HISTORIAN Historian: patient - HPI Stated Complaint: cough Chief Complaint: Cough/ Upper Respiratory Onset: days ago (6) Duration: constant Context: other (influenza a ) Associated Symptoms: fever, chills, sweating, runny nose, productive cough, hurts to breathe Worsened by Deep Breath: Yes Further Comments: yes (He states last his symptoms started with fever and cough. Thursday he was seen in ER and treated for Influenza A and he could not afford the tamiflu and he was then seen today at [facility] for continued cough and shortness of air. He reports he was told he had pneumonia and was sent home. He states he wants treatment for the pneumonia. He did picker tender the tamiflu today. He has had a low grade fever today. He states his cough is productive and he has body aches) - ROS CONST/EYES: weakness CVS/RESP: shortness of breath LYMPH: denies: rash GI/: none NEURO/PSYCH: denies: fainting, dizziness MS/SKIN: muscle aches - PAST HX Lung Disease: none PE Risk Factors: none Surgeries/Procedures: none Immunizations: UTD Allergies/Adverse Reactions: Allergies Allergy/AdvReac Type Severity Reaction Status Date / Time Penicillins Allergy Severe Anaphylaxis Verified 07/21/18 21:12 oxycodone HCl [From Percocet] Allergy Intermediate Hives Verified 07/21/18 21:12 Home Medications: Ambulatory Orders Medication Instructions Recorded Omeprazole 1 tab PO DAILY 05/13/18 Benzonatate [Tessalon Perles] 100 mg PO PRN PRN 07/21/18 Oseltamivir Phosphate [Tamiflu] 75 mg PO BID 07/21/18 - SOCIAL HX Smoking History: cigarettes Alcohol Use: none Drug Use: none - FAMILY HX Family History: none - VITAL SIGNS Vital Signs: Vital Signs Temp Pulse Resp BP Pulse Ox 99.1 F 77 18 126/81 92 07/21/18 19:11 07/21/18 22:07 07/21/18 22:07 07/21/18 22:07 07/21/18 22:07 - REVIEWED ASSESSMENTS Nursing Assessment Reviewed: Yes Vitals Reviewed: Yes Progress - Progress Progress: 1941: sat was at 88% on RA - oxygen added DG 1999: Mild improvement post neb DG 2129: Discussed case and admission with Dr Wood she is accepting DG ED Results Lab/Radiology - Lab Results Lab Results: Lab Results 07/21/18 07/21/18 07/21/18 20:00 20:00 20:00 WBC 14.40 K/ul H K/ul (4.00-12.00) RBC 5.03 M/ul M/ul (3.90-5.20) Hgb 15.5 g/dL g/dL (12.0-18.0) Hct 46.4 % % (37.0-53.0) MCV 92.0 fl fl (80.0-100.0) MCH 30.8 pg pg (28.0-34.0) MCHC 33.4 g/dL g/dL (30.0-36.0) RDW 13.2 % % (11.3-14.3) Plt Count 374 K/mm3 K/mm3 (130-400) Neut % (Auto) 66.7 % % (39.0-79.0) Lymph % (Auto) 23.7 % % (16.0-50.0) [place] % (Auto) 6.3 % % (0.0-11.0) Eos % (Auto) 2.0 % % (0.0-6.8) Baso % (Auto) 1.3 (0.0-1.5) Neut # (Auto) 9.6 # k/uL H # k/uL (1.4-7.7) Lymph # (Auto) 3.4 # k/uL # k/uL (0.6-4.0) [place] # (Auto) 0.9 # k/uL # k/uL (0.0-0.9) Eos # (Auto) 0.3 # k/uL # k/uL (0.0-0.6) Baso # (Auto) 0.2 # k/uL # k/uL (0.0-0.5) Sodium 139 mmol/L mmol/L (136-145) Potassium 4.4 mmol/L mmol/L (3.5-5.1) Chloride 102 mmol/L mmol/L (98-107) Carbon Dioxide 28 mmol/L mmol/L (22-30) BUN 14 mg/dL mg/dL (9-20) Creatinine 1.89 mg/dL H mg/dL (0.66-1.25) Est GFR ( Amer) 52 L (60 - ) Est GFR (Non-Af Amer) 43 L (60 - ) Glucose 105 mg/dL mg/dL (74-106) Lactate 1.2 U/L U/L (0.7-2.1) Calcium 9.1 mg/dL mg/dL (8.4-10.2) Total Bilirubin 0.4 mg/dL mg/dL (0.2-1.3) AST 57 U/L H U/L (15-46) ALT 49 U/L U/L (13-69) Alkaline Phosphatase 65 U/L U/L (38-126) Total Protein 6.5 g/dL g/dL (6.3-8.2) Albumin 3.8 g/dL g/dL (3.5-5.0) - Radiology Radiology Impressions: Chest, PA and lateral HISTORY Cough FINDINGS Mild diffuse bilateral patchy infiltrates are present, right greater than left. There is no pleural effusion or pneumothorax. Heart size and pulmonary vascularity are normal. Since 10/01/2017, infiltrates are new. IMPRESSION Bilateral patchy lung infiltrates. Electronically signed on Jul 21, 2018 8:37:58 PM CENTRIFUGAL CHILLER TECHNICIAN by: Ryan Ellsworth - Orders Orders: ED Orders Category Date Time Status Place IV Lock 1T Care 07/21/18 21:19 Active CHEST 2VIEW [RAD] Stat Exams 07/21/18 Taken BLOOD CULTURE Stat Lab 07/21/18 Ordered CBC/PLATELET/DIFF Stat Lab 07/21/18 20:00 Completed CMP Stat Lab 07/21/18 20:00 Completed LACTATE Stat Lab 07/21/18 20:00 Completed 0.9 % Sodium Chloride [Normal Saline] 1,000 ml Med 07/21/18 19:33 Discontinued IV NOW Ipratropium/Albuterol Sulfate [Duoneb] Med 07/21/18 19:33 Discontinued 3 ml NEB NOW ONE Ketorolac Tromethamine [Toradol] Med 07/21/18 21:38 Discontinued 30 mg IVP NOW ONE Levofloxacin 500Mg/D5w 100Ml [Levaquin] Med 07/21/18 21:38 Discontinued 500 mg IV NOW ONE methylPREDNISolone SOD SUCC [Solu-MEDROL] Med 07/21/18 21:40 Discontinued 125 mg IVP NOW ONE Oxygen Daily Oxygen 07/21/18 19:45 Ordered Upper Respiratory Symptoms - EXAM General Appearance: no acute distress, alert EENT: eyes nml inspection, PERRL, TM erythema, loss of TM landmarks (R), pharyngeal erythema Neck: normal inspection Respiratory: speaks full sentences, decreased air movement, wheezes, rhonchi. No: respiratory distress Abdomen: non-tender CVS: reg rate & rhythm Skin: color nml, no rash, warm,dry Extremities: non-tender Neuro/Psych: oriented x3 Discharge Clincal Impression: Influenza Pneumonia Qualifiers: Pneumonia type: due to unspecified organism Laterality: bilateral Lung location: lower lobe of lung Qualified Code(s): J18.1 - Lobar pneumonia, unspecified organism Condition: Fair Disposition: ADMITTED INPATIENT Decision to Admit: [id number] Date of Decison to Admit: 07/21/18 Decision Time: 21:33
[2018-07-21] MEDS ORDERED: IPRATROPIUM/ALBUTEROL SULFATE 3 ML AMPUL.NEB NEB ONE (19:33)
[2018-07-21] MEDS ORDERED: 0.9 % SODIUM CHLORIDE 1,000 ML IV ONE (19:33)
[2018-07-21 20:25] LABS: MEAN CORPUSCULAR HEMOGLOBIN 30.8 pg (28.0-34.0)
[2018-07-21 20:26] LABS: BASOPHILS % 1.3 (0.0-1.5); MONOCYTES % 6.3 % (0.0-11.0); NEUTROPHILS # 9.6 # k/uL (1.4-7.7)
[2018-07-21 20:45] LABS: eGFR (Non-African) 43
[2018-07-21] MEDS ORDERED: LEVOFLOXACIN IV ONE (21:38)
[2018-07-21] MEDS ORDERED: KETOROLAC TROMETHAMINE 30 MG/1ML VIAL IVP ONE (21:38)
[2018-07-21] MEDS ORDERED: [UNRECOGNIZED DRUG - OTHER] IV ONE (21:38)
[2018-07-21] MEDS ORDERED: methylPREDNISolone SOD SUCC 125 MG/2 ML VIAL IVP ONE (21:40)
[2018-07-21] MEDS ORDERED: IPRATROPIUM BROMIDE 0.5 MG/2.5 ML AMPUL.NEB NEB ONE (21:51)
[2018-07-21] MEDS ORDERED: ACETAMINOPHEN WITH CODEINE 300MG/30MG TABLET PO PRN (21:56)
[2018-07-21] MEDS: 0.9 % SODIUM CHLORIDE 1,000 ML IV SCH (22:37)
[2018-07-21 22:55] VITALS: BMI 37.4
[2018-07-21] MEDS: OSELTAMIVIR PHOSPHATE 75 MG CAPSULE PO SCH (23:22)
--- NOTE | 2018-07-22 05:30 | Diagnostic Imaging Report ---
DINO BETTENCOURT [facility] [address] [facility] [address] [place], [place]. [address] Report Submission Date: Jul 21, 2018 8:37:58 PM RECREATIONAL THERAPY AIDE Patient Study Name: ANDREZ ALVARADO Date: Jul 21, 2018 7:56:31 PM RECREATIONAL THERAPY AIDE Modality Type: DX Gender: M Description: CHEST 2VIEW : 82 Institution: [facility] Physician: DINO BETTENCOURT Chest, PA and lateral HISTORY Cough FINDINGS Mild diffuse bilateral patchy infiltrates are present, right greater than left. There is no pleural effusion or pneumothorax. Heart size and pulmonary vascularity are normal. Since 10/01/2017, infiltrates are new. IMPRESSION Bilateral patchy lung infiltrates. Electronically signed on Jul 21, 2018 8:37:58 PM RECREATIONAL THERAPY AIDE by: Ryan STARKS
[2018-07-22] MEDS: PANTOPRAZOLE SODIUM 40 MG TABLET.DR PO SCH (05:45)
[2018-07-22] MEDS ORDERED: ONDANSETRON HCL 4 MG TAB.RAPDIS PO PRN (06:23)
[2018-07-22] MEDS ORDERED: IPRATROPIUM/ALBUTEROL SULFATE 3 ML AMPUL.NEB NEB PRN (07:36)
--- NOTE | 2018-07-22 07:39 | History and Physical Report ---
History of Present Illnes - History of Present Illness Reason for Visit: SOB History of Present Illness: Patient became ill 07-15-18. He came to ER 07-18-18 and was diagnosed with Influenza. He was unable to afford Tamiflu. He went to [place] ER on day of admission for worsening cough. He reports he was diagnosed with bilateral pneumonia but not given any antibiotics. He did get a voucher for tamiflu so filled that. He became more SOB so came to [facility] ER. CXR showed B infiltrates, elevated WBC and SAT 88% on RA. He will be admitted for treatment of pneumonia. He has asthma and has felt some wheezy through this but albuterol hasn't helped. - Past Medical History Pulmonary: Asthma (Only uses albuterol every few months.) Gastrointestinal: GERD - Past Surgical History Past Surgical History: Other (R foot fx) - Past Family History Father Family History: CAD, - Past Social History Smoke: Quit (4 days ago - has smoked since he was 15.) Alcohol: None Drugs: None Lives: With Family - Health Maintenance Health Maintenance: denies: Cholesterol, Influenza Vaccine, Pneumococcal Vaccine Influenza Vaccine: No Pneumonia Vaccine: No Resuscitation Status: Resusciation Status Resuscitation Status Full Code Review of Systems - Review of Systems Constitutional: Fever, Weakness Eyes: negative: pain ENT: Nose Discharge. negative: Throat Pain Respiratory: Cough, Shortness of Breath, Wheezing Cardiovascular: negative: Chest Pain, Palpitations Gastrointestinal: Nausea. negative: Vomiting, Abdominal Pain Genitourinary: negative: Dysuria Musculoskeletal: negative: Back Pain Skin: negative: Rash Neurological: Weakness - Medications/Allergies Allergies/Adverse Reactions: Allergies Allergy/AdvReac Type Severity Reaction Status Date / Time Penicillins Allergy Severe Anaphylaxis Verified 07/21/18 21:12 oxycodone HCl [From Percocet] Allergy Intermediate Hives Verified 07/21/18 21:12 Home Medications: Home Medications Benzonatate [Tessalon Perles] 100 mg PO PRN PRN 07/21/18 Oseltamivir Phosphate [Tamiflu] 75 mg PO BID 07/21/18 Current Inpatient Medications: Current Inpatient Medications Acetaminophen/Codeine Phosphate (Tylenol #3) 1 each PO Q4 PRN PRN Reason: Mild Pain Sodium Chloride (Normal Saline) 1,000 mls @ 100 mls/hr IV Q10H MONIQUE Last Admin: 07/21/18 22:37 Dose: 100 mls/hr Ipratropium Kerrick (Atrovent Inh Soln) 0.5 mg NEB Q4 ONE Stop: 07/21/18 21:52 Last Admin: 07/21/18 22:40 Dose: 0.5 mg Methylprednisolone Sodium Succinate (Solu-Medrol) 125 mg IVP Q12 [facility] Ondansetron HCl (Zofran Odt) 4 mg PO Q6H PRN PRN Reason: Nausea / Vomiting Last Admin: 07/22/18 06:26 Dose: 4 mg Oseltamivir Phosphate (Tamiflu) 75 mg PO BID [facility] Last Admin: 07/21/18 23:22 Dose: Not Given Pantoprazole Sodium (Protonix) 40 mg PO 0700 [facility] Last Admin: 07/22/18 05:45 Dose: 40 mg Exam - Exam Vital Signs: Vital Signs (72 hours) 07/21/18 07/21/18 07/21/18 19:11 21:49 21:54 Temperature 99.1 F 98.2 F Pulse Rate [ 85 83 Right Pulse ox] Respiratory 18 20 Rate Blood Pressure 124/77 117/64 [Left Arm] Blood Pressure 134/79 [Right Arm] O2 Sat by Pulse 93 98 98 Oximetry 07/21/18 07/21/18 07/21/18 22:07 22:51 22:55 Temperature 98.2 F 98.2 F Pulse Rate [ 77 83 83 Right Pulse ox] Respiratory 18 20 20 Rate Blood Pressure 126/81 117/64 117/64 [Left Arm] Blood Pressure [Right Arm] O2 Sat by Pulse 92 98 98 Oximetry 07/22/18 07/22/18 07/22/18 01:47 02:00 05:58 Temperature 97.3 F L 98.4 F Pulse Rate [ 83 Right Pulse ox] Respiratory 18 18 14 Rate Blood Pressure 136/80 138/56 [Left Arm] Blood Pressure [Right Arm] O2 Sat by Pulse 97 96 97 Oximetry 07/22/18 06:00 Temperature Pulse Rate [ 83 Right Pulse ox] Respiratory 14 Rate Blood Pressure [Left Arm] Blood Pressure [Right Arm] O2 Sat by Pulse 97 Oximetry General: Alert, Oriented to Person, Oriented to Place, Oriented to Time, Cooperative, No acute distress HEENT: Atraumatic, PERRLA, EOMI, Mouth Mucous membr. moist/[place] Neck: Normal Range of Motion Lungs: Wheezes (faint), Rhonchi Cardiovascular: Regular rate Abdomen: Normal bowel sounds, Soft, No tenderness Integumentary: Other (Numerous tatoos) Extremities: No edema Neurological: Normal gait, Normal speech, Strength Equal Bilat, Normal tone Psych/Mental Status: Mental status NL, Mood NL, Appropriate Affect, Intact Judgment - Laboratory Results Laboratory Results: Laboratory Results 07/21/18 07/21/18 07/21/18 20:00 20:00 20:00 WBC 14.40 H RBC 5.03 Hgb 15.5 Hct 46.4 MCV 92.0 MCH 30.8 MCHC 33.4 RDW 13.2 Plt Count 374 Neut % (Auto) 66.7 Lymph % (Auto) 23.7 [place] % (Auto) 6.3 Eos % (Auto) 2.0 Baso % (Auto) 1.3 Neut # (Auto) 9.6 H Lymph # (Auto) 3.4 [place] # (Auto) 0.9 Eos # (Auto) 0.3 Baso # (Auto) 0.2 Sodium 139 Potassium 4.4 Chloride 102 Carbon Dioxide 28 BUN 14 Creatinine 1.89 H Est GFR ( Amer) 52 L Est GFR (Non-Af Amer) 43 L Glucose 105 Lactate 1.2 Calcium 9.1 Total Bilirubin 0.4 AST 57 H ALT 49 Alkaline Phosphatase 65 Total Protein 6.5 Albumin 3.8 Assessment/Plan - Assessment/Plan (1) Asthma Status: Acute Current Visit: Yes Qualifiers: Asthma severity: mild Asthma persistence: intermittent Asthma complication type: with acute exacerbation Qualified Code(s): J45.21 - Mild intermittent asthma with (acute) exacerbation Plan: Will plan IV steroids and duonebs scheduled. Incentive spirometry. (2) GERD without esophagitis Status: Chronic Current Visit: No Plan: Continue omeprazole. (3) Influenza Status: Acute Current Visit: Yes Plan: Despite it being diagnosed a week ago, patient has worsened so will complete tamiflu. (4) Pneumonia Status: Acute Current Visit: Yes Qualifiers: Pneumonia type: due to unspecified organism Laterality: bilateral Lung location: lower lobe of lung Qualified Code(s): J18.1 - Lobar pneumonia, unspecified organism Plan: Patient was started on levaquin and zithromax. O2 to keep SAT's greater than 90%. He refuses lovenox so will do SCD's and xarelto. Advised walking in room. Blood cultures drawn. Watch labs. VTE Assessment - RISK FACTOR SCORE VTE RISK FACTOR SCORES: ACUTE INFECTION OTHER THEN SEPSIS - RISK VTE LOW RISK: SCORE OF 1 OR LESS (RISK PROXIMAL DVT 0.4%) NO PROPHYLAXIS NEEDED
[2018-07-22 07:56] LABS: BASOPHILS % 0.9 (0.0-1.5); EOSINOPHILS % 0.7 % (0.0-6.8); MEAN CORPUSCULAR HEMOGLOBIN 30.7 pg (28.0-34.0); MONOCYTES % 3.4 % (0.0-11.0); NEUTROPHILS # 6.3 # k/uL (1.4-7.7)
[2018-07-22] MEDS: LEVOFLOXACIN IV SCH (08:15)
[2018-07-22] MEDS: methylPREDNISolone SOD SUCC 40 MG/ML VIAL IVP SCH ×2 (08:15→21:15)
[2018-07-22] MEDS: [UNRECOGNIZED DRUG - OTHER] IV SCH (08:15)
[2018-07-22] MEDS: RIVAROXABAN 10 MG TABLET PO SCH ×2 (08:16→21:25)
[2018-07-22] MEDS: OSELTAMIVIR PHOSPHATE 75 MG CAPSULE PO SCH ×2 (08:16→21:24)
[2018-07-22 08:23] LABS: eGFR (Non-African) > 60
[2018-07-22] MEDS ORDERED: methylPREDNISolone SOD SUCC 125 MG/2 ML VIAL IVP SCH (09:00)
[2018-07-22] MEDS: 0.9 % SODIUM CHLORIDE 1,000 ML IV SCH ×2 (09:50→19:53)
[2018-07-22] MEDS: IPRATROPIUM/ALBUTEROL SULFATE 3 ML AMPUL.NEB NEB SCH ×2 (11:35→17:43)
[2018-07-23] MEDS: IPRATROPIUM/ALBUTEROL SULFATE 3 ML AMPUL.NEB NEB SCH ×2 (00:10→06:33)
[2018-07-23] MEDS: 0.9 % SODIUM CHLORIDE 1,000 ML IV SCH (04:44)
[2018-07-23] MEDS: methylPREDNISolone SOD SUCC 40 MG/ML VIAL IVP SCH (06:01)
[2018-07-23] MEDS: PANTOPRAZOLE SODIUM 40 MG TABLET.DR PO SCH (06:41)
[2018-07-23 07:38] LABS: MEAN CORPUSCULAR HEMOGLOBIN 30.9 pg (28.0-34.0)
[2018-07-23 07:52] LABS: MONOCYTES % 3 % (0-11); SEGMENTED NEUTROPHILS % 90 % (39-79)
[2018-07-23 07:57] LABS: eGFR (Non-African) > 60
[2018-07-23] MEDS ORDERED: LEVOFLOXACIN 500 MG TABLET PO ONE (09:00)
--- NOTE | 2018-07-23 09:11 | Discharge Summary ---
Discharge Summary - Discharge Sumary History of Present Illness: Patient became ill 07-15-18. He came to ER 07-18-18 and was diagnosed with Influenza. He was unable to afford Tamiflu. He went to [place] ER on day of admission for worsening cough. He reports he was diagnosed with bilateral pneumonia but not given any antibiotics. He did get a voucher for tamiflu so filled that. He became more SOB so came to [facility] ER. CXR showed B infiltrates, elevated WBC and SAT 88% on RA. He will be admitted for treatment of pneumonia. He has asthma and has felt some wheezy through this but albuterol hasn't helped. Condition at Discharge: Stable Home Medications: Ambulatory Orders Medication Instructions Recorded Omeprazole 1 tab PO DAILY 05/13/18 Benzonatate [Tessalon Perles] 100 mg PO PRN PRN 07/21/18 Oseltamivir Phosphate [Tamiflu] 75 mg PO BID 07/21/18 Levofloxacin [Levaquin] 500 mg PO DAILY #7 tablet 07/23/18 Consultations this Visit: None Procedures this Visit: None Allergies/Adverse Reactions: Allergies Allergy/AdvReac Type Severity Reaction Status Date / Time Penicillins Allergy Severe Anaphylaxis Verified 07/21/18 21:12 oxycodone HCl [From Percocet] Allergy Intermediate Hives Verified 07/21/18 21:12 Patient Problems: Current Active Problems Problem Status Onset Asthma Acute Influenza Acute Pneumonia Acute Discharge Summary: Patient was admitted with hypoxia and B pneumonia on 07-21-18. He had previously been diagnosed with influenza. Due to his asthma, he was started on duonebs, O2, and IV steroids though wheezing was minimal. CLinically he improved greatly on IV levaquin and zithromax. O2 was weaned off. His blood sugar was 105 on admit but increased to 300 with IV steroids. He will not be discharged home on steroids. A1C is pending with [facility] at time of d/c. Counseled on weight loss and cutting out soda and sugary drinks as well as carbs. WBC was elevated on admit at 14. Dropped to 7 but increased to 25 after starting steroids. Discharged home on 07-23-18 in good condition to complete tamiflu and levaquin as outpatient. Hospital Course: Discharge Dx: B pneumonia. Influenza. Asthma. GERD. Hyperglycemia - suspect secondary to steroids. Disposition - home
[2018-07-23 09:21] VITALS: BP 140/80
[2018-07-23] MEDS ORDERED: LEVOFLOXACIN 500 MG TABLET ONE (09:27)
[2018-07-23] MEDS: OSELTAMIVIR PHOSPHATE 75 MG CAPSULE PO SCH (09:31)
[2018-07-23] MEDS: [UNRECOGNIZED DRUG - OTHER] IV SCH (09:49)
[2018-07-23] MEDS: LEVOFLOXACIN IV SCH (09:49)
== END 2018-07-23 09:30 | disposition home or self-care (01) | DRG 194 ==
LOC: ED 19:10 → SOUTH 21:46
PROVIDERS: ADMIT Family Medicine; ATTEND Family Medicine
DX: J18.1 Lobar pneumonia, unspecified organism (principal); J45.21 Mild intermittent asthma with (acute) exacerbation; J11.1 Influenza due to unidentified influenza virus with other respiratory manifestations; E16.0 Drug-induced hypoglycemia without coma; T38.0X5A Adverse effect of glucocorticoids and synthetic analogues, initial encounter; K21.9 Gastro-esophageal reflux disease without esophagitis
CPT/HCPCS: 36415; 71046; 80053; 80061; 83036; 83605; 85025; 87040; A9270; J1885; J1956; J2920; J2930; J7030; 94640; 96374; 99222; 99238; 99283; J1030; S1016

== ENCOUNTER 2018-10-25 16:12 | Emergency (ER) | payer OTHER ==
[2018-10-25] MEDS ORDERED: cefTRIAXone SODIUM 1 GM INJ ONE (17:20)
[2018-10-25] MEDS ORDERED: methylPREDNISolone SOD SUCC 125 MG/2 ML VIAL ONE (17:20)
[2018-10-25] MEDS ORDERED: ACETAMINOPHEN WITH CODEINE 300MG/30MG TABLET PO ONE (17:20)
[2018-10-25] MEDS ORDERED: Lidocaine 1% 5ml 10 MG/ML VIAL ONE (17:20)
== END 2018-10-25 18:00 ==
LOC: ED 16:12
DX: J06.9 Acute upper respiratory infection, unspecified (principal)
CPT/HCPCS: 96372; 99283; J0696; J2930